=== PATIENT | male | born 1960 | race American Indian/Alaskan Native ===

== ENCOUNTER 2018-09-10 09:38 | Day surgery (SDC) | payer OTHER ==
[2018-09-10] MEDS ORDERED: NACL 0.9% 1000 ML 1,000 ML IV SCH (11:00)
[2018-09-10] MEDS ORDERED: VERSED ONE (13:16)
[2018-09-10] MEDS ORDERED: DIPRIVAN 10 MG/ML IV ONE ×3 (13:16→13:17)
[2018-09-10] MEDS ORDERED: WATER FOR IRRIG STERILE IR ONE (13:47)
--- NOTE | 2018-09-10 13:50 | Discharge Summary ---
Short Stay Discharge Plan Activity: advance as tolerated Weight Bearing Status: Weight Bear as Tolerated Diet: regular Follow up with: [facility] [Primary Care Provider] - 7 Days
--- NOTE | 2018-09-10 13:50 | Operative Report ---
Operative Report Operative Report: Date of procedure: 09/10/2018 Procedure: Colonoscopy with Multiple Cold Snare polypectomies. Attending physician: Kieran Mallory M.D. Glass Bulb Silverer: Kieran Mallory M.D. Indication: Patient is a 58-year-old male who presents for screening colonoscopy. This colonoscopy serves to evaluate patient so that treatment may be directed based on the findings. Consent: Informed consent was obtained after advising the patient and family regarding nature of this procedure, its indications, potential benefits as well as possible complications including but not limited to bleeding perforation and adverse reaction to medication, infection as well as other cardiopulmonary complications. An informed written and verbal consent was then obtained after due opportunity was provided for questions and answers. Monitoring: Patient was monitored continuously with pulse oximetry and electrocardiographic recordings as well as blood pressure recordings. Vital signs remained stable throughout this procedure with no untoward events. Preoperative assessment: Patient was assessed immediately prior to this procedure for capacity to tolerate monitored anesthesia care and moderate sedation as well as general anesthesia. Patient's ASA classification is 2, Mallampati class is 2, Hyomental distance is 3. Instrument: Olympus video colonoscope. Medications: Propofol given intravenously in divided doses. For details please refer to anesthesia records. Description of procedure: Patient was placed in the left lateral decubitus position after achieving sedation, a digital rectal examination was performed following which the colonoscope was introduced into the anal verge and advanced to the cecum which was identified by the cecal valve, the appendiceal orifice, as well as by the cecal strap and direct transillumination. The colonoscope was subsequently withdrawn with careful inspection of all mucosal surfaces. Patient tolerated this procedure well and was subsequently taken to the recovery room. The following findings were noted. Findings: Patient had 2 broad-based flat polyp seen in the sigmoid colon measuring about 1 cm each. These was elevated with submucosal injection of saline and removed by cold snare polypectomy and retrieved. There were no additional lesions seen in the rest of the colon. Patient was noted to have internal hemorrhoids seen on the retroflexed view at the anal verge. Impression: 2 sigmoid flat colon polyps status post medical injection and cold snare polypectomy. Internal hemorrhoids. Plan: Follow pathology report. High-fiber diet. Repeat colonoscopy in 5 years if the polyps are adenomatous..
[2018-09-10 14:07] VITALS: BP 112/77
== END 2018-09-10 09:39 | disposition home or self-care (01) ==
LOC: GIO 09:38
PROVIDERS: ATTEND Internal Medicine Gastroenterology
DX: Z12.11 Encounter for screening for malignant neoplasm of colon (principal); K63.5 Polyp of colon; K64.8 Other hemorrhoids
CPT/HCPCS: 45381; 45385; 88305; J2250; J2704; J7030